=== PATIENT | female | born 1960 ===

== ENCOUNTER 2022-01-16 13:28 | Inpatient (IN) | payer MEDICAID ==
[~2022-01-16] VITALS: Ht 170.2 cm; Wt 72.6 kg
[2022-01-16 15:23] LABS: BASOPHILS ABSOLUTE AUTO 0.04 K/mm3 (0.00-0.23); BASOPHILS PERCENT AUTO 0 % (0-2); EOSINOPHILS ABSOLUTE AUTO 0.17 K/mm3 (0.00-0.68); EOSINOPHILS PERCENT AUTO 2 % (0-6); Hematocrit 40.6 % (33.0-51.0); Hemoglobin 13.7 g/dL (11.5-16.0); IMMATURE GRAN ABSOLUTE AUTO 0.03 K/mm3 (0.00-0.10); IMMATURE GRAN PERCENT AUTO 0 % (0-1); LYMPHOCYTES ABSOLUTE AUTO 1.25 K/mm3 (0.84-5.20); LYMPHOCYTES PERCENT AUTO 14 % (21-46); MONOCYTES ABSOLUTE AUTO 0.59 K/mm3 (0.16-1.47); MONOCYTES PERCENT AUTO 7 % (4-13); Mean Corpuscular HGB 29.6 pg (26.0-34.0); Mean Corpuscular HGB Conc 33.7 g/dL (31.5-36.5); Mean Corpuscular Volume 88 fL (80-100); Mean Platelet Volume 10.7 fL (9.1-12.4); NEUTROPHILS ABSOLUTE AUTO 7.01 K/mm3 (1.96-9.15); NEUTROPHILS PERCENT AUTO 77 % (41-73); Platelet Count 191 K/mm3 (150-400); RDW Standard Deviation 38.5 fL (35.1-46.3); Red Blood Cell Count 4.63 M/mm3 (3.80-5.20); White Blood Cell Count 9.09 K/mm3 (4.00-11.30)
[2022-01-16] MEDS ORDERED: GABA800 PO (15:27)
[2022-01-16] MEDS ORDERED: NAPR220 PO (15:28)
[2022-01-16 15:48] LABS: Albumin, Blood 3.1 g/dL (3.4-5.0); Albumin/Globulin Ratio 0.9 (0.8-1.8); Bilirubin, Total 0.6 mg/dL (0.1-1.0); Calcium, Blood 9.5 mg/dL (8.5-10.1); Creatinine, Blood 1.07 mg/dL (0.40-1.00); Globulin, Blood 3.5 g/dL (2.2-4.0); Potassium, Blood 3.5 mmol/L (3.5-5.5); Total Protein, Blood 6.6 g/dL (6.4-8.2)
[2022-01-16 15:54] LABS: Source, Urine Clean Catch
[2022-01-16 15:57] LABS: Appearance, Urine Clear (Clear); Bilirubin, Urine Neg (Neg); Blood, Urine Neg (Neg); Color, Urine Yellow (P-Yellow); Glucose Qualitative, Urine 2+ (Neg); Ketones, Urine Neg (Neg); Leukocyte Esterase, Urine Neg (Neg); Nitrite, Urine Neg (Neg); Protein, Urine Neg (Neg); Urobilinogen, Urine NORM (Normal)
[2022-01-16 19:04] LABS: U Amphetamine Screen DETECTED; U Barbituate Screen Not Detected; U Benzodiazapine Screen Not Detected; U Buprenorphine Screen Not Detected; U Cannabinoids Screen DETECTED; U Cocaine Screen Not Detected; U Methadone Screen Not Detected; U Methamphetamine Screen DETECTED; U Opiates Screen Not Detected; U Oxycodone Screen Not Detected; U Phencyclidine Screen Not Detected; U Propoxyphene Screen Not Detected
[2022-01-16 20:47] LABS: Influenza A, PCR NEGATIVE (NEGATIVE); Influenza B, PCR NEGATIVE (NEGATIVE); Resp Syncytial Virus, PCR NEGATIVE (NEGATIVE); SARS-Cov-2 (COVID-19) PCR, MMC NEGATIVE (NEGATIVE)
--- NOTE | 2022-01-17 05:20 | NUR ---
2009: ARRIVED IN [facility] ROOM 217. AOX4. REPORTS L HIP PAIN FROM [facility]. NO BRUISING NOTED. ARECHIGA PATENT AND OFF FLOOR. LUNGS ARE CLEAR. VSS. IV FLUIDS INFUSING. NPO AFTER MIDNIGHT. Q6 CBG. ORIENT IN ROOM. CALL LIGHT WITHIN REACH. WILL CONTINUE TO MONITOR.
--- NOTE | 2022-01-17 05:23 | NUR ---
SHIFT SUMMARY PT ADMITTED DUE TO [facility], ANTICIPATING SURGERY FOR TODAY. PT REPORTS MOD PAIN WITH MOVEMENT AND INT SHARP PAIN ON L HIP. PAIN MANAGED WITH DILAUDID 1MG. GIVEN BEFORE SLEEP AND THIS MORNING. IV FLUIDS INFUSING. PT DENIES N/T. TOLERATING PO INTAKE BEFORE MIDNIGHT. DENIES N/V. Q6 CBG. NPO AFTER MIDNIGHT. BEDREST. VSS. CALL LIGHT WITHIN REACH. WILL CONTINUE TO MONITOR AND WILL PROVIDE REPORT TO ONCOMING NURSE.
[2022-01-17 05:42] LABS: BASOPHILS ABSOLUTE AUTO 0.04 K/mm3 (0.00-0.23); BASOPHILS PERCENT AUTO 1 % (0-2); EOSINOPHILS ABSOLUTE AUTO 0.27 K/mm3 (0.00-0.68); EOSINOPHILS PERCENT AUTO 3 % (0-6); Hematocrit 38.7 % (33.0-51.0); Hemoglobin 12.8 g/dL (11.5-16.0); IMMATURE GRAN ABSOLUTE AUTO 0.03 K/mm3 (0.00-0.10); IMMATURE GRAN PERCENT AUTO 0 % (0-1); LYMPHOCYTES ABSOLUTE AUTO 1.35 K/mm3 (0.84-5.20); LYMPHOCYTES PERCENT AUTO 16 % (21-46); MONOCYTES ABSOLUTE AUTO 0.69 K/mm3 (0.16-1.47); MONOCYTES PERCENT AUTO 8 % (4-13); Mean Corpuscular HGB Conc 33.1 g/dL (31.5-36.5); Mean Corpuscular Volume 91 fL (80-100); Mean Platelet Volume 10.3 fL (9.1-12.4); NEUTROPHILS ABSOLUTE AUTO 5.93 K/mm3 (1.96-9.15); NEUTROPHILS PERCENT AUTO 71 % (41-73); Platelet Count 178 K/mm3 (150-400); RDW Coefficient Variation 12.2 % (11.7-14.2); RDW Standard Deviation 40.2 fL (35.1-46.3); Red Blood Cell Count 4.26 M/mm3 (3.80-5.20); White Blood Cell Count 8.31 K/mm3 (4.00-11.30)
[2022-01-17 06:04] LABS: Albumin, Blood 2.7 g/dL (3.4-5.0); Albumin/Globulin Ratio 0.8 (0.8-1.8); Bilirubin, Total 0.5 mg/dL (0.1-1.0); Bun/Creatinine Ratio 22.5 (12.0-20.0); Calcium, Blood 8.5 mg/dL (8.5-10.1); Creatinine, Blood 1.02 mg/dL (0.40-1.00); Globulin, Blood 3.2 g/dL (2.2-4.0); Potassium, Blood 3.9 mmol/L (3.5-5.5); Total Protein, Blood 5.9 g/dL (6.4-8.2)
[2022-01-17] MEDS ORDERED: SITA100T2 PO (11:13)
--- NOTE | 2022-01-17 11:14 | NUR ---
PT'S PHARMACY CONTACTED FOR CURRENT MEDICATION LIST PT IS UNFAMILIAR WITH HER HOME MEDS. PER THE PHARMACY THE MOST RECENT PRESCRIPTION FILLED WAS JANUVIA AND ALL OTHER PRESCRIPTIONS WERE FROM 2020 OR BEFORE. PT STATES THAT SHE IS TAKING THE JANUVIA AND SHE IS HAS BEEN TAKING GABAPENTIN THE WAS LEFTOVER FROM A PREVIOUS PRESCRIPTION.
--- NOTE | 2022-01-17 11:41 | NUR ---
PT TAKEN TO DAY SURGERY AT THIS TIME.
--- NOTE | 2022-01-17 15:42 | NUR ---
PT ARRIVED BACK TO THE ROOM AT APPROXIMATELY 1530. PT IS ALERT AND ORIENTED. PT REPORTS SHE HAS PAIN TO HER LEFT HIP BUT RESTS QUIETLY WITH EYES CLOSED WHEN PT IS LEFT TO REST. DRESSING PRESENT TO L HIP IS C/D/I. PULSES PRESENT TO L FOOT. WILL CONTINUE TO MONITOR.
--- NOTE | 2022-01-17 17:17 | NUR ---
SHIFT SUMMARY PT IS POD#0 FROM L HIP PINNING WITH DR. CALLAHAN. PT'S PAIN HAS BEEN MANAGED WITH IV PAIN MEDICATION POST-OP, PLAN TO TRANSITION TO PO MEDICATION. PT DROWSY AFTER GETTING PAIN MEDICATION. PT IS TOLERATING CLEAR LIQUIDS AND SALTINE CRACKERS. PLAN FOR PHYSICAL THERAPY TOMORROW. VSS. WILL MONITOR UNTIL REPORT TO SHARYN PHAM.
[2022-01-18 04:31] LABS: BASOPHILS ABSOLUTE AUTO 0.01 K/mm3 (0.00-0.23); BASOPHILS PERCENT AUTO 0 % (0-2); EOSINOPHILS PERCENT AUTO 0 % (0-6); Hematocrit 33.7 % (33.0-51.0); Hemoglobin 11.2 g/dL (11.5-16.0); IMMATURE GRAN ABSOLUTE AUTO 0.02 K/mm3 (0.00-0.10); IMMATURE GRAN PERCENT AUTO 0 % (0-1); LYMPHOCYTES PERCENT AUTO 10 % (21-46); MONOCYTES ABSOLUTE AUTO 0.38 K/mm3 (0.16-1.47); MONOCYTES PERCENT AUTO 6 % (4-13); Mean Corpuscular HGB 29.3 pg (26.0-34.0); Mean Corpuscular HGB Conc 33.2 g/dL (31.5-36.5); Mean Corpuscular Volume 88 fL (80-100); Mean Platelet Volume 10.4 fL (9.1-12.4); NEUTROPHILS ABSOLUTE AUTO 5.59 K/mm3 (1.96-9.15); NEUTROPHILS PERCENT AUTO 84 % (41-73); Platelet Count 142 K/mm3 (150-400); RDW Coefficient Variation 11.9 % (11.7-14.2); RDW Standard Deviation 38.5 fL (35.1-46.3); Red Blood Cell Count 3.82 M/mm3 (3.80-5.20)
[2022-01-18 04:43] LABS: Albumin, Blood 2.3 g/dL (3.4-5.0); Anion Gap 6 mmol/L (6-16); Blood Urea Nitrogen 14 mg/dL (8-24); Bun/Creatinine Ratio 19.9 (12.0-20.0); CO2, Blood 26 mmol/L (21-32); Calcium, Blood 7.9 mg/dL (8.5-10.1); Chloride, Blood 108 mmol/L (98-108); Glomerular Filtration Rate 97 (60-); Glucose, Blood 233 mg/dL (70-99); Phosphorus, Blood 1.9 mg/dL (2.5-4.9); Potassium, Blood 4.7 mmol/L (3.5-5.5); Sodium, Blood 140 mmol/L (136-145)
--- NOTE | 2022-01-18 06:32 | NUR ---
POD 1 S/P LEFT HIP PINNING. PT VSS T/O NIGHT. DRESSING CDI, NO SIG CHANGES IN SWELLING. PAIN MGD W/PERCOCET AND ICE. PT DOES BECOME ANXIOUS AT TIMES, RESPONDS WELL TO DISTRACTION. PT EDDIE REG PO, NO C/O N/V. ARECHIGA PATANT. PLAN TO MOBILIZE W/PT AND AWAIT DC PLANNING.
--- NOTE | 2022-01-18 14:10 | NUR ---
ITCHING PT BECAME VERY ITCHY IN THE EARLY AFTERNOON. PT STARTED TO COMPLAIN OF HER NOSE ITCHING, CONTINUED TO OBSERVE PT AND OVER TIME HER SKIN STARTED TO BECOME FLUSHED WITH REDNESS AROUND HER EYES. DR. SLATER CONTACTED BY [facility] RN PER DR. SLATER. ITCHING AND REDNESS RELIEVED. FENTANYL GIVEN PRIOR TO ITCHING AND REDNESS.
--- NOTE | 2022-01-18 20:04 | NUR ---
SHIFT SUMMARY PT IS POD#1 FROM L HIP PINNING WITH DR. CALLAHAN. PAIN MANAGED WITH PO PAIN MEDICATION. PT WORKED WITH THERAPY TODAY. ARECHIGA CATH REMOVED. PT ABLE TO VOID, HOWEVER IS INCONTINENT, ATTENDS IN PLACE. REPORT GIVEN TO SHARYN PHAM.
--- NOTE | 2022-01-19 06:43 | NUR ---
POD 2 S/P LEFT HIP PINNING. PT VSS, DRESSING CDI. CAP REFILL WNL, PT DENIED N/T. PAIN MGD W/2 PERCOCET W/REP RELIEF. PT UP W/FWW+1 ASSIST, DOES WELL W/TTWB. PLAN TO MOBILIZE W/PT AND AWAIT DC PLANNING.
[2022-01-19] MEDS ORDERED: ASPI325EC PO (11:36)
[2022-01-19] MEDS ORDERED: DOCU100 PO (12:04)
[2022-01-19] MEDS ORDERED: Percocet 5-3251 EACH PO (12:05)
[2022-01-19] MEDS ORDERED: MIRALAX17 GM PO (12:05)
--- NOTE | 2022-01-19 12:28 | NUR ---
DISCHARGE SUMMARY PATIENT ALERT AND ORIENTED THROUGHOUT MORNING. TOLERATING ADA DIET AND LIQUIDS. MAINTAINING TTWB WITH FWW AND GAIT BELT. CLEARED FOR DISCHARGE BY PHYSICAL THERAPY. PAIN CONTROLLED WITH PO PAIN MEDS. VOIDING WELL. AQUACEL C/D/I. DISCHARGE EDUCATION GIVEN ON NEW MEDS, WOUND CARE, ACTIVITY, AND FOLLOW UP APPTS. PATIENT LEFT UNIT AT 1220 VIA WHEELCHAIR FOR HOME WITH FAMILY MEMBER.
== END 2022-01-19 12:25 | disposition home health service (06) | DRG 482 ==
LOC: ER 13:28 → SURS 20:05
PROVIDERS: Family Medicine; Internal Medicine; Orthopaedic Surgery; Physician Assistant; ADMIT Internal Medicine
PROC: 0QH704Z Insertion of Internal Fixation Device into Left Upper Femur, Open Approach (ICD-10-PCS; principal; 2022-01-17 13:00)
DX: S72.002A Fracture of unspecified part of neck of left femur, initial encounter for closed fracture (principal); F15.10 Other stimulant abuse, uncomplicated; F12.10 Cannabis abuse, uncomplicated; E11.65 Type 2 diabetes mellitus with hyperglycemia; E11.40 Type 2 diabetes mellitus with diabetic neuropathy, unspecified; E83.39 Other disorders of phosphorus metabolism; K21.9 Gastro-esophageal reflux disease without esophagitis; L40.9 Psoriasis, unspecified; F17.210 Nicotine dependence, cigarettes, uncomplicated; Z20.822 Contact with and (suspected) exposure to COVID-19; R41.82 Altered mental status, unspecified; E11.22 Type 2 diabetes mellitus with diabetic chronic kidney disease; N18.9 Chronic kidney disease, unspecified; Z79.899 Other long term (current) drug therapy; Z88.5 Allergy status to narcotic agent; Z79.1 Long term (current) use of non-steroidal anti-inflammatories (NSAID); Z98.890 Other specified postprocedural states; Z98.1 Arthrodesis status; Z90.710 Acquired absence of both cervix and uterus; Z87.19 Personal history of other diseases of the digestive system; W18.30XA Fall on same level, unspecified, initial encounter
CPT/HCPCS: 0241U; 36415; 51702; 70450; 73030; 73502; 73610; 73700; 80053; 80069; 81003; 82947; 83690; 85025; 93005; 93010; 94760; 96374; 96375; 96376; 97110; 97116; 97162; 97166; 97530; 97535; 99285-25; A9270; C1713; C1769; J0690; J1100; J1170; J1650; J1815; J1885; J2250; J2405; J2704; J3010; J7030; J7060